=== PATIENT | female | born 1975 ===

== ENCOUNTER 2016-12-17 10:52 | Emergency (ER) | payer OTHER ==
[2016-12-17 11:05] VITALS: BP 112/77; PULSE 73; RESP 16; TEMP 98.3; O2SAT 98
--- NOTE | 2016-12-17 11:27 | C.PDOC ---
History Of Present Illness A 41 year old female, who denies any past medical history, presents to the emergency department for left upper eyelid eye swelling, which began yesterday morning. The patient reports when she woke up yesterday her eye was a little swollen, but when she woke up today the swelling had worsened. The patient admits to have mild itchiness and burning to the eye, but denies any discharge. She denies any fever or any other complaints at this time. Time Seen by Provider: 12/17/16 11:18 Chief Complaint (Nursing): Eye Problem History Per: Patient History/Exam Limitations: no limitations Onset/Duration Of Symptoms: Days (1 day ) Current Symptoms Are (Timing): Worse Injury To Eye?: No Severity: Mild Quality: Burning, Other (itchy ) Associated Symptoms: Itching. denies: Discharge From Eye Past Medical History Reviewed: Historical Data, Nursing Documentation, Vital Signs Vital Signs: Last Vital Signs Temp 98.3 F 12/17/16 11:02 Pulse 73 12/17/16 11:02 Resp 16 12/17/16 11:02 BP 112/77 12/17/16 11:02 Pulse Ox 98 12/17/16 11:30 Family History: States: Unknown Family Hx - Social History Hx Alcohol Use: No Hx Substance Use: No - Immunization History Hx Tetanus Toxoid Vaccination: No Hx Influenza Vaccination: Yes Hx Pneumococcal Vaccination: No Review Of Systems Except As Marked, All Systems Reviewed And Found Negative. Constitutional: Negative for: Fever Eyes: Positive for: Eyelid Inflammation, Redness. Negative for: Vision Change Physical Exam - Physical Exam Additional Physical Exam Comments: Constitutional: No acute distress. Head: Normocephalic. Atraumatic. Eyes: Upper eyelid edema and erythema. EOMI. Blanching. PERRL. ENT: Moist mucous membranes. Neck: Supple. Cardiovascular: Regular rate. Radial pulse 2+ bilaterally. Chest: No tenderness. Respiratory: Clear to auscultation bilaterally. GI: Soft. Nontender. Non distended. Back: No CVA tenderness. Musculoskeletal: No tenderness or swelling of extremities. Skin: No rash. Neurologic: Alert, no focal deficit. ED Course And Treatment O2 Sat by Pulse Oximetry: 98 Medical Decision Making Medical Decision Making: Impression: A 41 year old female with left upper eye lid swelling. Treatment Plan: Antibiotics. Monitor at home for worsening erythema, pain, pain with EOM, fever. Disposition - Disposition Disposition: HOME/ ROUTINE Disposition Time: 11:33 Condition: STABLE Prescriptions: Doxycycline Monohydrate 100 mg PO BID #20 tablet Instructions: Periorbital Cellulitis in Adults (ED) Forms: [employer] (Armenian) - Clinical Impression Clinical Impression: Periorbital erythema - Scribe Statement The provider has reviewed the documentation as recorded by the Scribe Keely Velazquez All medical record entries made by the Madysonibanthony were at my direction and personally dictated by me. I have reviewed the chart and agree that the record accurately reflects my personal performance of the history, physical exam, medical decision making, and the department course for this patient. I have also personally directed, reviewed, and agree with the discharge instructions and disposition.
== END 2016-12-17 11:40 | disposition home or self-care (01) ==
LOC: C.ER 10:52
DX: L53.9 Erythematous condition, unspecified (principal)

== ENCOUNTER 2017-04-09 11:14 | Emergency (ER) | payer OTHER ==
[2017-04-09 11:40] VITALS: BMI 30.2
[2017-04-09 11:46] VITALS: BP 119/76; PULSE 102; TEMP 99.1; O2SAT 98
[2017-04-09] MEDS ORDERED: Amoxicillin-Clav 875-125 mg Tab PO STA (11:58)
--- NOTE | 2017-04-09 12:02 | C.PDOC ---
History Of Present Illness 41 yo female w/o significant PMHx come in for evaluation of fever, sore throat gradually worsen for past 4 days. Today, worse pain in throat, (+) swelling. Otherwise, pt denies headache, dizziness, vertigo, drooling, dyspnea, wheezing, CP, SOB, abd. pain, V/D, UTI sx. Ambulate to Ed for evaluation, not in any apparent distress. Time Seen by Provider: 04/09/17 11:33 Chief Complaint (Nursing): Cough, Cold, Congestion History Per: Patient Onset/Duration Of Symptoms: Gradual Past Medical History Reviewed: Historical Data, Nursing Documentation, Vital Signs Vital Signs: Last Vital Signs Temp 99.1 F 04/09/17 11:42 Pulse 102 H 04/09/17 11:42 Resp 18 04/09/17 11:42 BP 119/76 04/09/17 11:42 Pulse Ox 98 04/09/17 11:42 - Medical History PMH: No Chronic Diseases Surgical History: No Surg Hx Family History: States: Unknown Family Hx - Social History Hx Tobacco Use: No Hx Alcohol Use: No Hx Substance Use: No - Immunization History Hx Tetanus Toxoid Vaccination: No Hx Influenza Vaccination: No Hx Pneumococcal Vaccination: No Review Of Systems Except As Marked, All Systems Reviewed And Found Negative. Constitutional: Positive for: Fever, Malaise ENT: Positive for: Nose Discharge, Nose Congestion, Throat Pain, Throat Swelling. Negative for: Ear Pain, Ear Discharge Cardiovascular: Negative for: Chest Pain, Palpitations Respiratory: Negative for: Shortness of Breath, Wheezing Gastrointestinal: Negative for: Nausea, Vomiting, Abdominal Pain, Diarrhea Genitourinary: Negative for: Dysuria, Incontinence Musculoskeletal: Negative for: Neck Pain, Back Pain Skin: Negative for: Rash Neurological: Negative for: Altered Mental Status, Headache, Dizziness Physical Exam - Physical Exam Appears: Well, No Acute Distress Skin: Normal Color, Warm, Dry, No Rash Head: Normacephalic Eye(s): bilateral: PERRL Ear(s): Bilateral: Normal Nose: No Flaring, Discharge (B/L clear) Oral Mucosa: Moist, No Drooling Tongue: Normal Appearing Lips: Normal Appearing Throat: Erythema (mod B/L with B/L tonsillar enlargment), No Exudate, No Drooling Neck: Trachea Midline, Supple, Other ((-) meningeal sign) Cardiovascular: Rhythm Regular Respiratory: No Decreased Breath Sounds, No Accessory Muscle Use, No Stridor, No Wheezing Gastrointestinal/Abdominal: Soft, No Tenderness, No Distention, No Guarding Back: No CVA Tenderness Extremity: Normal ROM, No Deformity, No Swelling Neurological/Psych: Oriented x3, Normal Speech ED Course And Treatment O2 Sat by Pulse Oximetry: 98 Pulse Ox Interpretation: Normal Progress Note: On re-evaluation, pt is afebrile, hemodynamicaly stable. NOn- toxic. Tolerate PO well in ED. PulsEOx 98% RA. Neck: Supple, (-) meningeal sign. ENT: exam c/w acute pharyngitis. Lungs: CTA B/L, BS equal B/L. Abd: benign. Back: (-) CVA tenderness. Neuorlogicaly intact. Pt advised. ref. to f/u with PMD, ENT in 2-3 days for re-eval. return if any worsening or new changes. Disposition Counseled Patient/Family Regarding: Diagnosis, Need For Followup, Rx Given - Disposition Referrals: Sarah Villafuerte MD [Medical Doctor] - Disposition: HOME/ ROUTINE Disposition Time: 11:59 Condition: STABLE Additional Instructions: Encourage fluids Take medication as prescribed Follow up with PM in 2-3 days for re-evaluation. Return to ED if any worsening or new changes. Prescriptions: Amoxicillin/Clavulanate [Augmentin 875 MG-125 MG] 1 tab PO BID #14 tab Prednisone [Deltasone] 40 mg PO DAILY #6 tablet Instructions: Pharyngitis (ED) Forms: [facility] (Urdu), Work Excuse - Clinical Impression Clinical Impression: Pharyngitis
[2017-04-09] MEDS ORDERED: Amoxicillin-Clav 875-125 mg Tab PO ONE (12:28)
[2017-04-09 12:30] VITALS: RESP 20
== END 2017-04-09 12:28 | disposition home or self-care (01) ==
LOC: C.ER 11:14
DX: J02.9 Acute pharyngitis, unspecified (principal)

== ENCOUNTER 2017-10-08 09:33 | Emergency (ER) | payer OTHER ==
[2017-10-08 09:39] VITALS: BMI 27.3
[2017-10-08 09:42] VITALS: BP 121/85; PULSE 91; RESP 18; TEMP 98.5; O2SAT 98
--- NOTE | 2017-10-08 10:24 | C.PDOC ---
History Of Present Illness 42 year old female presents to the ED complaining of fever (Tmax 100.3), nasal congestion, and sore throat for 2 days. Patient reports she took Tylenol and Theraflu but symptoms persist. She denies taking any medications today. She denies any chest pain, SOB, neck pain, difficult swallowing, cough, ear pain, or any other complaints at this time. Time Seen by Provider: 10/08/17 09:52 Chief Complaint (Nursing): Cough, Cold, Congestion History Per: Patient History/Exam Limitations: no limitations Onset/Duration Of Symptoms: Days Current Symptoms Are (Timing): Still Present Location Of Pain: Throat Associated Symptoms: Fever, Sore Throat, Nasal Congestion. denies: Cough, Neck Pain Past Medical History Reviewed: Historical Data, Nursing Documentation, Vital Signs Vital Signs: Last Vital Signs Temp 98.5 F 10/08/17 09:39 Pulse 91 H 10/08/17 09:39 Resp 18 10/08/17 09:39 BP 121/85 10/08/17 09:39 Pulse Ox 98 10/08/17 11:10 - Medical History PMH: No Chronic Diseases Surgical History: Family History: States: No Known Family Hx - Social History Hx Tobacco Use: No Hx Alcohol Use: No Hx Substance Use: No - Immunization History Hx Tetanus Toxoid Vaccination: No Hx Influenza Vaccination: No Hx Pneumococcal Vaccination: No Review Of Systems Constitutional: Positive for: Fever ENT: Positive for: Nose Congestion, Throat Pain Cardiovascular: Negative for: Chest Pain Respiratory: Negative for: Cough, Shortness of Breath Musculoskeletal: Negative for: Neck Pain Physical Exam - Physical Exam Appears: Well, Non-toxic, No Acute Distress Skin: Warm, Dry Head: Atraumatic, Normacephalic Eye(s): bilateral: Normal Inspection, PERRL, EOMI Ear(s): Bilateral: Normal Nose: Other (congestion) Oral Mucosa: Moist Throat: Erythema, No Exudate, No Drooling Neck: Normal ROM, Supple Lymphatic: Adenopathy (submandibular lymphadenopathy) Chest: Symmetrical Cardiovascular: Rhythm Regular Respiratory: Normal Breath Sounds, No Rales, No Rhonchi, No Wheezing Extremity: Normal ROM Extremity: Bilateral: Atraumatic, Normal Color And Temperature, Normal ROM Neurological/Psych: Oriented x3, Normal Speech Gait: Steady ED Course And Treatment O2 Sat by Pulse Oximetry: 98 (RA) Pulse Ox Interpretation: Normal Progress Note: PT is afebrile. No difficulty breathing or swallowing. Neck supple. DIscussed hydration, symptomatic treatment. Patient given Rx for Amoxicillin and Motrin. Patient instructed to follow up with PMD in 1-3 days for further evaluation. Patient advised to return to the ED if symptoms worsen or persist. Disposition - Disposition Disposition: HOME/ ROUTINE Disposition Time: 10:23 Condition: STABLE Additional Instructions: Follow up with primary medical doctor in 1-3 days without fail for further evaluation. Take medications as prescribed. Return to the emergency department at any time if symptoms persist or worsen. 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 - Scribe Statement The provider has reviewed the documentation as recorded by the Scribanthony Isaac All medical record entries made by the Bassam were at my direction and personally dictated by me. I have reviewed the chart and agree that the record accurately reflects my personal performance of the history, physical exam, medical decision making, and the department course for this patient. I have also personally directed, reviewed, and agree with the discharge instructions and disposition.
== END 2017-10-08 10:27 | disposition home or self-care (01) ==
LOC: C.ER 09:33
DX: J02.9 Acute pharyngitis, unspecified (principal)

== ENCOUNTER 2018-01-14 11:55 | Emergency (ER) | payer OTHER ==
[2018-01-14 11:55] VITALS: BMI 27.3
[2018-01-14 12:01] VITALS: RESP 18; O2SAT 100
--- NOTE | 2018-01-14 12:52 | C.PDOC ---
History Of Present Illness 42 year old female presents to the ED complaining of cough, congestion, and sore throat for one day. Denies any fever, chills, ear pain, shortness of breath, difficulty swallowing, abdominal pain, n/v or any other symptoms. Son also being seen in ED for same symptoms. Denies any recent travels. Time Seen by Provider: 01/14/18 12:00 Chief Complaint (Nursing): Cough, Cold, Congestion History Per: Patient History/Exam Limitations: no limitations Onset/Duration Of Symptoms: Days (1) Current Symptoms Are (Timing): Still Present Location Of Pain: Throat Associated Symptoms: Sore Throat, Cough. denies: Fever, Chills, Nasal Congestion Ear Symptoms: Bilateral: None Past Medical History Reviewed: Historical Data, Nursing Documentation, Vital Signs Vital Signs: Last Vital Signs Temp 98.1 F 01/14/18 11:59 Pulse 69 01/14/18 11:59 Resp 18 01/14/18 11:59 BP 104/69 01/14/18 11:59 Pulse Ox 100 01/14/18 11:59 - Medical History PMH: No Chronic Diseases Surgical History: Family History: States: No Known Family Hx - Social History Hx Tobacco Use: No Hx Alcohol Use: No Hx Substance Use: No - Immunization History Hx Tetanus Toxoid Vaccination: No Hx Influenza Vaccination: No Hx Pneumococcal Vaccination: No Review Of Systems Constitutional: Negative for: Fever, Chills ENT: Positive for: Throat Pain. Negative for: Ear Pain, Nose Discharge, Nose Congestion Respiratory: Positive for: Cough Physical Exam - Physical Exam Appears: Non-toxic, No Acute Distress Skin: Warm, Dry, No Rash Head: Atraumatic, Normacephalic Eye(s): bilateral: Normal Inspection, EOMI Nose: Normal Oral Mucosa: Moist Tongue: Normal Appearing Lips: Normal Appearing Teeth: Normal Dentition Gingiva: Normal Appearing Throat: Normal, No Erythema, No Exudate Neck: Normal ROM, Supple Lymphatic: Normal Exam Chest: Symmetrical Cardiovascular: Rhythm Regular Respiratory: Normal Breath Sounds, No Rales, No Rhonchi, No Wheezing Neurological/Psych: Oriented x3, Normal Speech Gait: Steady ED Course And Treatment O2 Sat by Pulse Oximetry: 100 Progress Note: Rapid Strep Test negative. Discussed with pt symptoms appear viral and instructed symptomatic treatment. Instructed to follow up with PMD in 1-2 days. Discussed return precautions. Disposition - Disposition Disposition: HOME/ ROUTINE Disposition Time: 13:02 Condition: STABLE Additional Instructions: Drink plenty of fluids. Take over the counter medication for the cough and congestion. Follow up with your doctor in 1-2 days. 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 - Scribe Statement The provider has reviewed the documentation as recorded by the Scribe Esther Isaac All medical record entries made by the Madysonibanthony were at my direction and personally dictated by me. I have reviewed the chart and agree that the record accurately reflects my personal performance of the history, physical exam, medical decision making, and the department course for this patient. I have also personally directed, reviewed, and agree with the discharge instructions and disposition.
[2018-01-14 13:28] VITALS: BP 106/82; PULSE 82; TEMP 98.2
== END 2018-01-14 13:28 | disposition home or self-care (01) ==
LOC: C.ER 11:55
DX: B34.9 Viral infection, unspecified (principal); J06.9 Acute upper respiratory infection, unspecified

== ENCOUNTER 2018-02-15 21:51 | Emergency (ER) | payer OTHER ==
[2018-02-15 21:51] VITALS: BMI 27.3
[2018-02-15 22:08] VITALS: BP 113/77; PULSE 89; TEMP 98.4; O2SAT 99
--- NOTE | 2018-02-15 22:09 | C.PDOC ---
History Of Present Illness 42 year old female presents to the ED c/o URI symptoms for the past week. Patient reports having sore throat, productive cough. Patient not sure about having fever, has been taking Tylenol for her sore throat. Patient states her son was sick with similar symptoms last week. Patient denies headache, CP, SOB, palpitations, nausea, vomit, rash, recent travel. Time Seen by Provider: 02/15/18 22:05 Chief Complaint (Nursing): ENT Problem History Per: Patient History/Exam Limitations: None Onset/Duration Of Symptoms: Days Current Symptoms Are (Timing): Still Present Quality (Mouth/Throat): Tenderness Symptoms Have Been: Continuous Anticoagulant/Antiplatlet Use?: No Recent Aspirin Use: No Past Medical History Reviewed: Historical Data, Nursing Documentation, Vital Signs Vital Signs: Last Vital Signs Temp 98.4 F 02/15/18 22:05 Pulse 89 02/15/18 22:05 Resp 16 02/15/18 22:05 BP 113/77 02/15/18 22:05 Pulse Ox 99 02/15/18 22:05 - Medical History PMH: No Chronic Diseases Surgical History: Family History: States: Unknown Family Hx - Social History Hx Tobacco Use: No Hx Alcohol Use: No Hx Substance Use: No - Immunization History Hx Tetanus Toxoid Vaccination: No Hx Influenza Vaccination: No Hx Pneumococcal Vaccination: No Review Of Systems Constitutional: Negative for: Fever (unsure), Chills ENT: Positive for: Throat Pain. Negative for: Nose Discharge, Nose Congestion Cardiovascular: Negative for: Chest Pain, Palpitations Respiratory: Positive for: Cough, Sputum. Negative for: Shortness of Breath, Wheezing Gastrointestinal: Negative for: Nausea, Vomiting, Abdominal Pain Skin: Negative for: Rash Neurological: Negative for: Headache, Dizziness Physical Exam - Physical Exam Appears: Non-toxic, No Acute Distress Skin: Normal Color, Warm, Dry Head: Atraumatic, Normacephalic Eye(s): bilateral: Normal Inspection Ear(s): Bilateral: Normal Oral Mucosa: Moist Throat: Normal, No Erythema, No Exudate Neck: Normal ROM, Supple Lymphatic: No Adenopathy (cervical, submandibular) Chest: Symmetrical Cardiovascular: Rhythm Regular Respiratory: Normal Breath Sounds, No Rales, No Rhonchi, No Wheezing Gastrointestinal/Abdominal: Soft, No Tenderness, No Guarding, No Rebound Extremity: Normal ROM, No Tenderness, No Swelling Neurological/Psych: Oriented x3, Normal Speech, Normal Cognition Gait: Steady ED Course And Treatment O2 Sat by Pulse Oximetry: 99 (On RA) Pulse Ox Interpretation: Normal Medical Decision Making Medical Decision Making: Plan: * Rapid strep group reevaluation : Disposition Counseled Patient/Family Regarding: Studies Performed, Diagnosis, Need For Followup - Disposition Referrals: Sarah Villafuerte MD [Medical Doctor] - Disposition: HOME/ ROUTINE Disposition Time: 22:47 Condition: STABLE Additional Instructions: GERMAINE STEWART, thank you for letting us take care of you today. Your provider was Zamzam Wright MD and you were treated for THROAT PAINS. The emergency medical care you received today was directed at your acute symptoms. If you were prescribed any medication, please fill it and take as directed. It may take several days for your symptoms to resolve. Return to the Emergency Department if your symptoms worsen, do not improve, or if you have any other problems. Please contact your doctor for a follow up appointment. Bring any paperwork you were given at discharge with you along with any medications you are taking to your follow up visit. Our treatment cannot replace ongoing medical care by a primary care provider outside of the emergency department. Thank you for allowing the [facility] team to be part of your care today. If you had an X-Ray or CT scan: A Radiologist will review the ED reading if any change in treatment is needed we will contact you. If you had a blood, urine, or wound culture: It will take several days for the results, if any change in treatment is needed we will contact you. If you had an STI test: It will take 48 hours for the results. Please call after 1 week if you have not heard back. Instructions: Sore Throat, Adult (DC), Viral Upper Respiratory Infection, Adult (DC) Forms: [employer] (Mongolian) - POA Present On Arrival: None - Clinical Impression Clinical Impression: Pharyngitis, Upper respiratory infection - Scribe Statement The provider has reviewed the documentation as recorded by the Scribe Jacob Munoz All medical record entries made by the Scribe were at my direction and personally dictated by me. I have reviewed the chart and agree that the record accurately reflects my personal performance of the history, physical exam, medical decision making, and the department course for this patient. I have also personally directed, reviewed, and agree with the discharge instructions and disposition.
[2018-02-15 22:58] VITALS: RESP 20
== END 2018-02-15 22:57 | disposition home or self-care (01) ==
LOC: C.ER 21:51
DX: J02.9 Acute pharyngitis, unspecified (principal)